=== PATIENT | female | born 1980 | race Caucasian/White ===

== ENCOUNTER 2019-10-02 10:47 | Outpatient (CLI) | payer OTHER ==
--- NOTE | 2019-10-02 14:24 | ULT ---
THYROID ULTRASOUND: HISTORY: Enlarged thyroid gland. COMPARISON: None. FINDINGS: Thyroid isthmus measures 0.3 cm. Right thyroid lobe measures 1.4 x 4.4 x 1.0 cm. Left thyroid lobe measures 3.1 x 0.9 x 1.2 cm. Solitary solid nodule in the mid right thyroid lobe measures 0.4 x 0.4 x 0.6. IMPRESSION: TI-RADS category 4 - moderately suspicious. Follow-up imaging at one year. Transcribed Date/Time: 10/02/2019 2:30 PM
== END 2019-10-02 10:48 | disposition home or self-care (01) ==
LOC: BICULT 10:47
PROVIDERS: ATTEND Nurse Practitioner Family
DX: E04.9 Nontoxic goiter, unspecified (principal)
CPT/HCPCS: 76536